=== PATIENT | female | born 1960 | race Caucasian/White ===

== ENCOUNTER → 2016-05-11 | Outpatient (CLI) | payer BC ==
[~2016-05-11] MED LIST: CALC600T9 PO; CHOL100027 PO; DIFL0.0519 OPL; GLUC10007 PO; HYDR12.55 PO; OFLO0.3S OP; PANT40TA PO; PRED1SUS3 OPR
--- NOTE | 2016-05-11 16:32 | MAMMOGRAPHY REPORT ---
BILATERAL DIGITAL SCREENING MAMMOGRAM TOMOSYNTHESIS WITH CAD: 05/11/2016 CLINICAL HISTORY: Routine screening examination. TECHNIQUE: Breast tomosynthesis in addition to standard 2D mammography was performed. Current study was also evaluated with a Computer Aided Detection (CAD) system. COMPARISON: Comparison is made to exams dated: 05/09/2015 mammogram, 03/08/2014 mammogram, 08/12/2011 mammogram, 10/04/2011 ultrasound biopsy, 09/23/2011 mammogram - [facility], and 008 mammogram. BREAST COMPOSITION: There are scattered areas of fibroglandular density in both breasts. FINDINGS: There are 2 stable metallic biopsy markers within the right breast. Scattered benign coa rse calcifications bilaterally. No suspicious mass, architectural distortion or cluster of microcal cifications is seen. IMPRESSION: ACR BI-RADS CATEGORY 1: NEGATIVE There is no mammographic evidence of malignancy. A 1 year screening mammogram is recommended. The p atient will receive written notification of the results. Approximately 10% of breast cancers are not detected with mammography. A negative mammographic repor t should not delay biopsy if a clinically suggestive mass is present. Catrachita Stevens M.D. ay/:05/11/2016 15:48:29 Assistant Community Director: Mehreen KAUR(Joey)(M), [facility] letter sent: Normal 1/2 BI-RADS Code: ACR BI-RADS Category 1: Negative
== END | disposition home or self-care (01) ==
LOC: C.MAMM 13:54
PROVIDERS: ATTEND Family Medicine
DX: Z12.31 Encounter for screening mammogram for malignant neoplasm of breast (principal)

== ENCOUNTER → 2017-05-16 | Outpatient (CLI) | payer OTHER ==
--- NOTE | 2017-05-17 13:03 | MAMMOGRAPHY REPORT ---
BILATERAL DIGITAL SCREENING MAMMOGRAM TOMOSYNTHESIS WITH CAD: 05/16/2017 CLINICAL HISTORY: Routine screening. TECHNIQUE: Breast tomosynthesis in addition to standard 2D mammography was performed. Current study was also evaluated with a Computer Aided Detection (CAD) system. COMPARISON: Comparison is made to exams dated: 05/09/2015 mammogram, 05/11/2016 mammogram, 03/08/2014 m ammogram, 08/12/2011 mammogram - [facility], 06/30/2007 mammogram, and 09/23/2011 mammog martha - [facility]. BREAST COMPOSITION: There are scattered areas of fibroglandular density in both breasts. FINDINGS: There is stable metallic biopsy markers in the left breast, and scattered stable benign coa rse calcifications bilaterally. No suspicious mass, architectural distortion or cluster of suspiciou s microcalcifications is seen. IMPRESSION: ACR BI-RADS CATEGORY 1: NEGATIVE There is no mammographic evidence of malignancy. A 1 year screening mammogram is recommended. The pa tient will receive written notification of the results. Approximately 10% of breast cancers are not detected with mammography. A negative mammographic report should not delay biopsy if a clinically suggestive mass is present. Catrachita Stevens M.D. ay/:05/16/2017 15:26:03 Digital Cartographer: Elliott CONNELLY)(), [facility] letter sent: Normal 1/2 BI-RADS Code: ACR BI-RADS Category 1: Negative
== END | disposition home or self-care (01) ==
LOC: C.MAMM 12:45
PROVIDERS: ATTEND Family Medicine
DX: Z12.31 Encounter for screening mammogram for malignant neoplasm of breast (principal)

== ENCOUNTER 2017-10-06 23:39 | Emergency (ER) | payer OTHER ==
[~2017-10-06] VITALS: Ht 157.5 cm; Wt 77.7 kg
[2017-10-06 23:40] VITALS: PULSE 75; TEMP 36.8; O2SAT 98; Ht 157.5 cm; Wt 77.7 kg
[2017-10-07] MEDS ORDERED: OXYC-737 PO (00:13)
[2017-10-07] MEDS ORDERED: OXYCODONE IR HOME PACK PO ONE (00:15)
[2017-10-07 00:29] VITALS: BP 169/110
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
== END 2017-10-07 00:31 | disposition home or self-care (01) ==
LOC: C.EDB 23:40 → C.EDA 10-07 00:31
DX: T23.052A Burn of unspecified degree of left palm, initial encounter (principal); T23.032A Burn of unspecified degree of multiple left fingers (nail), not including thumb, initial encounter; T31.0 Burns involving less than 10% of body surface; X15.3XXA Contact with hot saucepan or skillet, initial encounter; I10 Essential (primary) hypertension; Z90.710 Acquired absence of both cervix and uterus; Z79.899 Other long term (current) drug therapy; Z91.048 Other nonmedicinal substance allergy status